=== PATIENT | female | born 1960 ===

== ENCOUNTER 2018-08-15 17:20 | Emergency (ER) | payer OTHER ==
[2018-08-15 17:23] VITALS: BP 161/87; PULSE 90; RESP 16; TEMP 97.9; O2SAT 96
--- NOTE | 2018-08-15 18:56 | ED PDOC ---
HPI: Headache Time Seen by Provider: 08/15/18 17:30 Chief Complaint (Nursing): Headache Chief Complaint (Provider): headache History Per: Patient, Emissions Technician History/Exam Limitations: no limitations Onset/Duration Of Symptoms: Hrs Current Symptoms Are (Timing): Still Present Severity: Moderate Pain Scale Rating Of: 5 Quality: Aching, Tightness Additional Complaint(s): Pt. reports CAMPOS since this am, present upon waking but did not wake her up. CAMPOS is decribed as moderate, 5/10, gradual in onset, mostly localized to left back of head and feels worse when she touches it. Pt. did not take anything for pain. She has h/o migraines. Pt. also reports right hand paresthesias starting this afternoon about 5 hrs. ago. Symptoms describes as pins and needles to hand with no associated pain, no weakness; paresthesias localized to hand. Past Medical History Vital Signs: Last Vital Signs Temp 97.9 F 08/15/18 17:23 Pulse 90 08/15/18 17:23 Resp 16 08/15/18 17:23 BP 161/87 H 08/15/18 17:23 Pulse Ox 96 08/15/18 17:23 - Medical History PMH: Asthma, CAD, HTN, Kidney Stones - Surgical History Surgical History: Coronary Stent (X2) - Family History Family History: States: Unknown Family Hx - Home Medications Home Medications: Ambulatory Orders Medication Instructions Recorded Oseltamivir Phosphate [Tamiflu] 1 tab PO BID #10 capsule 11/13/15 Naproxen 500 mg PO BID 5 Days #10 tab 08/15/18 - Allergies Allergies/Adverse Reactions: Allergies Allergy/AdvReac Type Severity Reaction Status Date / Time No Known Allergies Allergy Verified 11/12/15 18:38 Review of Systems Constitutional: Negative for: Weakness Eyes: Negative for: Vision Change Cardiovascular: Negative for: Chest Pain Respiratory: Negative for: Shortness of Breath Skin: Negative for: Rash Neurological: Negative for: Weakness, Confusion, Altered Mental Status, Dizziness Physical Exam - Reviewed Nursing Documentation Reviewed: Yes Vital Signs Reviewed: Yes - Physical Exam Appears: Positive for: Well, Non-toxic Head Exam: Positive for: ATRAUMATIC, NORMAL INSPECTION (mild tenderness with no swelling over left occiput) Skin: Positive for: Normal Color, Warm, Dry. Negative for: Rash Eye Exam: Positive for: Normal appearance, EOMI, PERRL Neck: Positive for: Normal, Painless ROM, Supple Cardiovascular/Chest: Positive for: Regular Rate, Rhythm Respiratory: Positive for: Normal Breath Sounds Neurologic/Psych: Positive for: Alert, skiver uppers or linings II-XII (intact), Oriented, Gait (wnl), Other (Upper extremity strength 5/5 to bilateral upper and lower extremities. RUE: good strength including grasp. Sensation grossly intact. ). Negative for: Motor/Sensory Deficits - ECG O2 Sat by Pulse Oximetry: 96 Medical Decision Making Medical Decision Making: Motrin po given for headache. CT head Accession No. : [id number] Patient Name / ID : EMILIO VAUGHN / [id number] Exam Date : 08/15/2018 18:40:14 ( Approved ) Study Comment : Sex / Age : F / 58Y Creator : Randal Tinoco MD Dictator : Randal Tinoco MD Hims Manager : Real Estate Legal Assistant : Randal Tinoco MD Approver2 : Report Date : 08/15/2018 18:52:00 My Comment : Date of service: 08/15/2018 PROCEDURE: CT HEAD WITHOUT CONTRAST. HISTORY: headache COMPARISON: None available. TECHNIQUE: Axial computed tomography images were obtained through the head/brain without intravenous contrast. Supplemental Coronal and Sagittal projections created and reviewed. Radiation dose: Total exam DLP = <inf_radiation_dlp> mGy-cm. This CT exam was performed using one or more of the following dose reduction techniques: Automated exposure control, adjustment of the mA and/or kV according to patient size, and/or use of iterative reconstruction technique. FINDINGS: HEMORRHAGE: No intracranial hemorrhage. BRAIN: No mass effect or edema. No atrophy or chronic microvascular ischemic changes. VENTRICLES: Unremarkable. No hydrocephalus. CALVARIUM: Unremarkable. PARANASAL SINUSES: Air-fluid level consistent with acute sphenoid sinusitis. MASTOID AIR CELLS: Unremarkable as visualized. No inflammatory changes. OTHER FINDINGS: None. IMPRESSION: No acute intracranial abnormalities. No significant findings to account for the clinical presentation. On reassessment, pt. reports headache improved. Neuro exam normal and sensation intact to bilateral UE with no associated weakness. Pt. ambulating with steady gait. Disposition - Clinical Impression Clinical Impression: Headache, Hand paresthesia - Patient ED Disposition Is Patient to be Admitted: No Counseled Patient/Family Regarding: Studies Performed, Diagnosis, Need For Followup - Disposition Disposition: Routine/Home Disposition Time: 20:02 Condition: STABLE Additional Instructions: Follow up with your PMD Dr. Moreno in 1-2 days Prescriptions: Naproxen 500 mg PO BID 5 Days #10 tab Instructions: Tension Headache, Paresthesias (DC) Forms: [facility] (German), [facility] ED School/Work Excuse Print Language: QATARI
== END 2018-08-15 20:19 | disposition home or self-care (01) ==
LOC: H.ER 17:20
DX: R20.2 Paresthesia of skin (principal); R51 Headache; I10 Essential (primary) hypertension; J45.909 Unspecified asthma, uncomplicated; Z87.442 Personal history of urinary calculi; Z95.5 Presence of coronary angioplasty implant and graft